=== PATIENT | male | born 1965 | race Caucasian/White ===

== ENCOUNTER → 2018-07-15 | Outpatient (CLI) | payer OTHER | END | disposition home or self-care (01) | LOC: LAB 15:10 | DX: R97.20 Elevated prostate specific antigen [PSA] (principal) ==

== ENCOUNTER 2018-08-15 07:34 | Outpatient (CLI) | payer OTHER | END 2018-08-15 08:26 | disposition home or self-care (01) | LOC: SONOGRAMA 07:34 | DX: R97.20 Elevated prostate specific antigen [PSA] (principal) ==

== ENCOUNTER 2020-05-30 10:20 | Outpatient (CLI) | payer OTHER | END 2020-05-30 10:25 | disposition home or self-care (01) | LOC: LAB 10:20 | PROVIDERS: ATTEND Urology | DX: R97.20 Elevated prostate specific antigen [PSA] (principal) ==

== ENCOUNTER 2020-06-17 07:06 | Outpatient (CLI) | payer OTHER | END 2020-06-17 07:19 | disposition home or self-care (01) | LOC: SONOGRAMA 07:06 | PROVIDERS: ATTEND Urology | DX: C61 Malignant neoplasm of prostate (principal); N40.0 Benign prostatic hyperplasia without lower urinary tract symptoms; R97.20 Elevated prostate specific antigen [PSA] ==

== ENCOUNTER → 2020-10-07 06:33 | Outpatient (CLI) | payer OTHER ==
[~2020-10-07 06:33] MED LIST: TAMS0.4C PO
== END | disposition home or self-care (01) ==
LOC: LAB 06:33
PROVIDERS: ATTEND Urology
DX: C61 Malignant neoplasm of prostate (principal)

== ENCOUNTER 2020-10-10 08:17 | Outpatient (CLI) | payer OTHER ==
[2020-10-10] MEDS ORDERED: TAMS0.4C PO (11:10)
== END 2020-10-11 16:18 | disposition home or self-care (01) ==
LOC: EKG 08:17
PROVIDERS: ATTEND Urology
DX: Z01.810 Encounter for preprocedural cardiovascular examination (principal)

== ENCOUNTER 2020-10-12 07:45 | Inpatient (IN) | payer OTHER ==
[~2020-10-12] VITALS: Ht 170.2 cm; Wt 95.3 kg
== END 2020-10-21 11:30 | disposition home or self-care (01) | DRG 708 ==
LOC: O/R 10-19 06:13 → SURH 10-19 07:00
PROVIDERS: ADMIT Urology; ATTEND Urology
PROC: 07BC0ZX Excision of Pelvis Lymphatic, Open Approach, Diagnostic (ICD-10-PCS; 2020-10-19)
PROC: 0VT00ZZ Resection of Prostate, Open Approach (ICD-10-PCS; principal; 2020-10-19 07:00)
DX: C61 Malignant neoplasm of prostate (principal)